=== PATIENT | female | born 1935 | race Caucasian/White ===

== ENCOUNTER 2018-03-20 08:12 | Day surgery (SDC) | payer OTHER ==
[2018-03-20] VITALS (8 sets, daily range): BP systolic 133–177; BP diastolic 63–92; PULSE 49–67; RESP 18–20; TEMP 97.7–98; O2SAT 96–97
[~2018-03-20] VITALS: Ht 160 cm; Wt 59.1 kg
[2018-03-20] MEDS ORDERED: MIDAZOLAM HCL 5 MG/5 ML VIAL ONE (08:23)
[2018-03-20] MEDS ORDERED: fentaNYL CITRATE 250 MCG/5 ML AMP ONE (08:23)
[2018-03-20] MEDS ORDERED: FLUT50SP EACH NARE (08:39)
[2018-03-20] MEDS ORDERED: AMLO5TAB2 PO (08:39)
[2018-03-20] MEDS ORDERED: TIMO0.5S30 EACH EYE (08:39)
[2018-03-20] MEDS ORDERED: LACTCAP8 PO (08:39)
[2018-03-20] MEDS ORDERED: CHOL100025 CHEW (08:39)
[2018-03-20] MEDS ORDERED: MELA1TAB18 PO (08:39)
[2018-03-20] MEDS ORDERED: SODIUM CHLOR 0.9% 1000 ML INJ 1,000 ML IV SCH (08:45)
[2018-03-20 09:13] LABS: PROTHROMBIN TIME - PATIENT 10.1 SEC (9.8-11.6)
[2018-03-20] MEDS ORDERED: LIDOCAINE HCL 1% 20 ML VIAL ONE (09:24)
--- NOTE | 2018-03-20 10:24 | PD.RAD ---
Post Procedure Progress Note Pre Procedure Diagnosis: (1) Pulmonary nodules/lesions, multiple Post Procedure Diagnosis: (1) Pulmonary nodules/lesions, multiple Procedure Date: March 20, 2018 Supervising Radiologist: Callum Singletary Estimated blood loss: none Plan of Activity Patient to Unit: [facility] Patient Condition: Good Additional Comments: Successful ct guided biopsy of the left pulmonary mass. Full dictated report to follow. See PACS Report for procedural detail/treatment Callum Singletary MD March 20, 2018 10:24
[2018-03-20] MEDS ORDERED: oxyCODONE/ACETAMINOPHEN 5 MG/325 MG TAB PO PRN (10:30)
--- NOTE | 2018-03-20 11:17 | RADRPT ---
EXAM DATE/TIME: 03/20/2018 09:49 [facility] COMPARISON: CT PELVIS W/O CONTRAST, April 12, 2017, 0:00. INDICATIONS : Left lung mass. SEDATION TIME: 45 minutes BIOPSY SITE: Left lung MEDICATION(S): 1.) 2.5 mg midazolam (Versed) IV 2.) 125 mcg fentanyl (Sublimaze) IV DEVICE(S): 1.) 20 gauge Temno core biopsy needle 2.) 19 gauge coaxial MEDICAL HISTORY : Carcinoma, anal. melanoma SURGICAL HISTORY : None. ENCOUNTER: Initial ACUITY: 1 day PAIN SCORE: 0/10 LOCATION: Left lung A total of three core specimen(s) were obtained and sent to the laboratory for pathologic evaluation. PROCEDURE: 1. CT guided lt lung biopsy. 2. Conscious sedation with continuous EKG and oximetry monitoring. 3. EKG and oximetry remained stable throughout the procedure. Prior to the procedure informed consent was obtained. Any appropriate prior imaging studies were rev iewed. Using automated exposure control and adjustment of the mA and/or kV according to patient size, radiation dose was kept as low as reasonably achievable to obtain optimal diagnostic quality images. DICOM format image data is available electronically for review and comparison. The site was prepped in a sterile fashion. Full sterile technique was used, including cap, mask, rosie rile gloves and gown and a large sterile sheet. Hand hygiene and 2% chlorhexidine and/or betadine/al cohol prep was utilized per protocol for cutaneous antisepsis. The skin and subcutaneous tissues wer e infiltrated with local anesthetic solution. With CT guidance the previously identified target was localized. A 20 gauge cannula was advanced thro ugh the skin and into the posterior margin of the lesion. A 20 gauge biopsy needle was advanced throu gh the cannula. Initial core biopsy returned only a trace amount of material. This was placed on a sl collins. Preliminary evaluation by the [employer] demonstrated cellular material. A total of 2 more core bio psies of the lesion were obtained. Hemostasis was obtained with compression at the puncture site. Follow-up CT scan reveals no pneumothorax. Conscious sedation was performed with the prescribed dosages and duration as above in the presence of an independent trained radiology nurse to assist in the monitoring of the patient. EKG and oximetry remained stable throughout the procedure. The patient tolerated the procedure well and there were no complications. The patient was sent to Radiology Outpatient Unit in stable condition. CONCLUSION: Uncomplicated CT guided biopsy. Callum Singletary MD on March 20, 2018 at 11:13 Board Certified Radiologist. This report was verified electronically.
--- NOTE | 2018-03-20 13:02 | RADRPT ---
EXAM DATE/TIME: 03/20/2018 11:55 [facility] COMPARISON: CT NEEDLE BIOPSY LUNG, LEFT, March 20, 2018, 9:49. INDICATIONS : Post lung biopsy. MEDICAL HISTORY : None. SURGICAL HISTORY : None. ENCOUNTER: Initial ACUITY: 1 day PAIN SCORE: 0/10 LOCATION: Left chest FINDINGS: A single frontal expiratory view of the chest was performed. The lungs are symmetrically aerated wit h some scattered subpleural airspace disease predominantly in the bases. Nodular density projecting o gil the inferior tip of the left scapula was identified on the most recent CT scan of the chest. Ther e may be a very tiny left apical pneumothorax. Heart size is borderline prominent a well compensated. Rim calcified breast augmentation bilaterally. CONCLUSION: There may be a very tiny left apical pneumothorax post biopsy. A repeat chest radiograph will be obtained in one hour. Clarence Dove MD on March 20, 2018 at 12:56 Board Certified Radiologist. This report was verified electronically.
--- NOTE | 2018-03-20 13:32 | RADRPT ---
EXAM DATE/TIME: 03/20/2018 13:09 [facility] COMPARISON: CT NEEDLE BIOPSY LUNG, LEFT, March 20, 2018, 9:49. CHEST EXPIRATION ONLY, March 20, 2018, 11:55. INDICATIONS : Evaluate for pneumothorax. Post lung biopsy. MEDICAL HISTORY : Carcinoma, anal. Melanoma. SURGICAL HISTORY : None. ENCOUNTER: Subsequent ACUITY: 1 day PAIN SCORE: 0/10 LOCATION: Bilateral chest FINDINGS: A single frontal expiratory view of the chest was performed. Redemonstration of mass in the left uppe r lung zone. The very small possible apical pneumothorax is not as well-demonstrated on this exam. Me diastinal structures are in the midline. The cardio-mediastinal contours and bronchopulmonary markings are unremarkable for an expiratory exam . Osseous structures are intact. CONCLUSION: 1. No significant pneumothorax following left lung mass biopsy. Abner Hughes MD on March 20, 2018 at 13:27 Board Certified Radiologist. This report was verified electronically.
== END 2018-03-20 14:36 | disposition home or self-care (01) ==
LOC: HRAD 08:12 → HRIP 08:15 → HRAD 14:36
PROVIDERS: ATTEND Radiology Radiation Oncology
DX: R91.8 Other nonspecific abnormal finding of lung field (principal); I10 Essential (primary) hypertension; Z85.048 Personal history of other malignant neoplasm of rectum, rectosigmoid junction, and anus; Z85.820 Personal history of malignant melanoma of skin
CPT/HCPCS: 32405; 71045; 77012; 85610; 85730; 88305; 88333; 88341; 88342; 99152; 99153; J2250; J3010; J7030